=== PATIENT | male | born 1970 | race African-American/Black ===

== ENCOUNTER 2016-12-13 19:47 | Emergency (ER) | payer MEDICAID ==
[~2016-12-13] VITALS: Ht 182.9 cm; Wt 100.0 kg
[~2016-12-13 19:47] MED LIST: CLON1TAB; FE F1CAP33; GABA1TAB; QUET25TA; VENL50TA2; VIC; [UNRECOGNIZED DRUG - OTHER]; [UNRECOGNIZED DRUG - OTHER]
[2016-12-13] MEDS ORDERED: SODIUM CHLORIDE 0.9% 1,000 ML IV ONE (19:59)
[2016-12-13] MEDS ORDERED: LORAZEPAM 2MG/ML CPJ IV STA (19:59)
[2016-12-13 20:47] LABS: BASOPHILS % 0.5 % (0.0-2.0); EOSINOPHILS % 0.3 % (0.0-5.0); HEMATOCRIT. 52.9 % (42.0-52.0); HEMOGLOBIN. 18.3 g/dL (14.0-18.0); LYMPHOCYTES % 14.7 % (20.0-50.0); MEAN CORPUSCULAR HEMOGLOBIN 33.3 pg (28.0-32.0); MEAN CORPUSCULAR HGB CONC 34.5 g/dL (31.0-37.0); MEAN CORPUSCULAR VOLUME 96.3 fL (80.0-94.0); MEAN PLATELET VOLUME 7.1 fl (7.4-10.4); MONOCYTES % 10.4 % (2.0-8.0); NEUTROPHILS % 74.1 % (40.0-76.0); PLATELET 325 x1000/uL (130-400); RED CELL DISTRIBUTION WIDTH 13.2 % (11.6-14.6); WHITE BLOOD COUNT 11.2 x1000/uL (4.5-11.0)
[2016-12-13 20:51] LABS: INR 1.2; PROTHROMBIN TIME 12.5 sec
[2016-12-13 20:57] LABS: AMMONIA 23 uMol/L (<32)
[2016-12-13 21:01] LABS: ACETAMINOPHEN < 2 ug/mL (10-30); ALANINE AMINOTRANSFERASE 19 IU/L (13-61); ALBUMIN 4.9 g/dL (3.4-5.0); ANION GAP 13; CALCIUM 10.1 mg/dL (8.5-10.1); CARBON DIOXIDE 27 mEq/L (21-32); CHLORIDE 105 mEq/L (98-107); CREATINE KINASE 232 IU/L (39-308); ETHANOL BLOOD < 10 mg/dL; INDEX HEMOLYSI 1 (1-3); INDEX ICTERIC 1 (1-4); INDEX LIPEMIC 1 (1-3); LIPASE 81 IU/L (73-393); TROPONIN I < 0.02 ng/mL (0.00-0.04); UREA NITROGEN BLOOD 9 mg/dL (7-21); eGFR > 60 mL/min (>60)
[2016-12-13 21:07] LABS: THYROID STIMULATING HORMONE 0.86 uIU/mL (0.36-3.74)
[2016-12-13] MEDS ORDERED: SODIUM CHLORIDE 0.9% 1,000 ML IV NR ×2 (21:50→23:15)
[2016-12-13] MEDS ORDERED: LORAZEPAM 2MG/ML CPJ IV NR (23:15)
[2016-12-13] MEDS ORDERED: LABETALOL 5MG/ML SYR 20 MG/4 ML SYRINGE IV NR (23:15)
[2016-12-13 23:41] LABS: CLARITY URINE CLEAR (CLEAR); COLOR URINE DARK YELLOW (YELLOW); GLUCOSE URINE NEGATIVE (NEGATIVE); KETONES URINE 2+ (NEGATIVE); LEUKOCYTE ESTERASE URINE NEGATIVE (NEGATIVE); NITRITE URINE NEGATIVE (NEGATIVE); OCCULT BLOOD URINE NEGATIVE (NEGATIVE); PH URINE 5.5 (4.5-8.0); PROTEIN URINE TRACE (NEGATIVE); SPECIFIC GRAVITY URINE 1.032 (1.005-1.030)
[2016-12-13 23:58] LABS: *AMPHETAMINES SCREEN URINE PRESUMTIVE POSITIVE (NEGATIVE); *BARBITURATES SCREEN URINE NEGATIVE (NEGATIVE); *BENZODIAZEPINES SCREEN URINE PRESUMTIVE POSITIVE (NEGATIVE); *COCAINE SCREEN URINE NEGATIVE (NEGATIVE); CANNABINOID URINE SCREEN NEGATIVE (NEGATIVE); ECSTASY MDMA SCREEN URINE CONF.TEST INDICATED (NEGATIVE); METHADONE URINE SCREEN NEGATIVE (NEGATIVE); OPIATES URINE SCREEN NEGATIVE (NEGATIVE); PHENCYCLIDINE URINE SCREEN NEGATIVE (NEGATIVE)
[2016-12-14 00:01] LABS: BACTERIA URINE NONE SEEN; RBC URINE 0-2 /hpf (0-2); SQUAMOUS EPITHELIAL CELL URINE NONE SEEN /lpf (RARE/1+); WBC URINE 0-2 /hpf (0-2)
[2016-12-14] MEDS ORDERED: SODIUM CHLORIDE 0.9% 1,000 ML IV ONE (00:36)
[2016-12-14] MEDS ORDERED: LORAZEPAM 2MG/ML CPJ IV ONE (00:45)
[2016-12-14] MEDS ORDERED: LABETALOL 5MG/ML SYR 20 MG/4 ML SYRINGE IV NR (00:45)
[2016-12-14 04:00] VITALS: BP 158/83
== END 2016-12-14 04:30 | disposition home or self-care (01) ==
LOC: ER 19:47
DX: F15.10 Other stimulant abuse, uncomplicated (principal); R44.0 Auditory hallucinations; I10 Essential (primary) hypertension; F41.9 Anxiety disorder, unspecified; Z88.6 Allergy status to analgesic agent
CPT/HCPCS: 36415; 70450; 71010; 80053; 80305; 80307; 80329; 81001; 82140; 82550; 83605; 83690; 84443; 84484; 85025; 85610; 93005; 96361; 96374; 96375; 96376; 99285; G0482; J2060; J3490; J7030; Z7610